=== PATIENT | male | born 1995 | race Caucasian/White ===

== ENCOUNTER 2019-11-13 12:56 | Emergency (ER) | payer OTHER, SELFPAY ==
[2019-11-13] MEDS ORDERED: Ketorolac Tromethamine 30 MG/ML VIAL ONE (13:56)
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
== END 2019-11-13 14:53 | disposition home or self-care (01) ==
LOC: ERS 12:56
DX: S63.501A Unspecified sprain of right wrist, initial encounter (principal); Z79.899 Other long term (current) drug therapy; V43.52XA Car driver injured in collision with other type car in traffic accident, initial encounter
CPT/HCPCS: 96372; J1885